=== PATIENT | male | born 1940 | race Caucasian/White ===

== ENCOUNTER → 2018-12-28 | Outpatient (CLI) | payer MEDICARE ==
[~2018-12-28] MED LIST: ASPI-1197 PO; CLONIDINE PO; FLUO20CA30 PO; LABE300T2 PO; LEVO500T89 PO; METH4TAB16 PO; NAPR220T57 PO; OLME40TA8 PO; OMEG-58 PO; ROSU5TAB PO
== END | disposition home or self-care (01) ==
LOC: OIH 10:03
PROVIDERS: ATTEND Internal Medicine
DX: M19.042 Primary osteoarthritis, left hand (principal); M47.812 Spondylosis without myelopathy or radiculopathy, cervical region; M48.02 Spinal stenosis, cervical region; M25.78 Osteophyte, vertebrae
CPT/HCPCS: 72040; 73120

== ENCOUNTER → 2023-07-08 | Outpatient (CLI) | payer MEDICARE ==
[~2023-07-08] MED LIST changes: -LABE300T2 PO; +LABE300T4 PO; +LEVO-70 PO; -LEVO500T89 PO; +OLME40TA70 PO; -OLME40TA8 PO
== END | disposition home or self-care (01) ==
LOC: RAH 13:56
PROVIDERS: ATTEND Student in an Organized Health Care Education/Training Program
DX: I82.431 Acute embolism and thrombosis of right popliteal vein (principal); I82.411 Acute embolism and thrombosis of right femoral vein; I82.441 Acute embolism and thrombosis of right tibial vein; I82.401 Acute embolism and thrombosis of unspecified deep veins of right lower extremity; R60.9 Edema, unspecified; Z79.899 Other long term (current) drug therapy
CPT/HCPCS: 93970

== ENCOUNTER 2023-07-18 12:36 | Inpatient (IN) | payer MEDICARE ==
[~2023-07-18] VITALS: Ht 172.7 cm; Wt 80.2 kg
[2023-07-18 14:17] LABS: BASOPHILS # (AUTO) 0.02 K/uL (0.00-0.20); BASOPHILS % (AUTO) 0.3 % (0.0-5.0); EOSINOPHILS # (AUTO) 0.01 K/uL (0.00-0.70); EOSINOPHILS % (AUTO) 0.1 % (0.0-8.0); HEMATOCRIT 44.5 % (42-54); IMMATURE GRANULOCYTE ABSOLUTE 0.02 K/uL (0-1); LYMPHOCYTES # (AUTO) 0.6 K/uL (1.0-4.8); LYMPHOCYTES % (AUTO) 7.7 % (21.0-51.0); MEAN CORPUSCULAR HEMOGLOBIN 30.3 pg (27.0-33.0); MEAN CORPUSCULAR VOLUME 97.6 fL (79-99); MONOCYTES # (AUTO) 0.3 K/uL (0.1-1.0); MONOCYTES % (AUTO) 3.7 % (3.0-13.0); NEUTROPHILS # (AUTO) 6.7 K/uL (1.8-7.7); NEUTROPHILS % (AUTO) 87.9 % (40.0-77.0); PLATELET COUNT (AUTO) 176 K/uL (130-400); RED BLOOD CELL COUNT(AUTO) 4.56 MIL/uL (4.50-6.20); RED CELL DISTRIBUTION WIDTH 13.8 % (11.0-15.5); WHITE BLOOD COUNT (AUTO) 7.6 K/uL (4.8-10.8)
[2023-07-18 14:25] LABS: CREATININE 1.6 mg/dL (0.5-1.5); POTASSIUM 5.3 mmol/L (3.5-5.1)
[2023-07-18 14:26] LABS: INR <= 0.93 (0.85-1.15); PROTHROMBIN TIME 10.4 SEC (9.6-11.6)
[2023-07-18 14:28] LABS: PARTIAL THROMBOPLASTIN TIME 27.6 SEC (26.3-35.5)
[2023-07-18 14:30] LABS: ALBUMIN 3.7 g/dL (3.5-5.0); BILIRUBIN,TOTAL 0.4 mg/dL (0.2-1.0); TOTAL PROTEIN, SERUM 7.2 g/dL (6.0-8.3)
[2023-07-18] MEDS: HEPARIN 25,000 UNITS/250ML D5W 250 ML IV SCH (14:57)
[2023-07-18] MEDS: HEPARIN 5,000 UNIT VIAL IV ONE (14:58)
[2023-07-18] MEDS ORDERED: KCL 20 MEQ ERTAB PO PRN (15:30)
[2023-07-18] MEDS ORDERED: POTASSIUM CHLORIDE 20MEQ/100ML 100 ML IV PRN (15:30)
[2023-07-18] MEDS ORDERED: POTASSIUM CHLORIDE 10% ELIXIR 20 MEQ/15 ML UDCUP PO PRN (15:30)
[2023-07-18 18:45] LABS: APPEARANCE,URINE CLEAR (CLEAR); BILIRUBIN,URINE NEGATIVE (NEGATIVE); COLOR,URINE COLORLESS (YELLOW); GLUCOSE, URINE (UA) NEGATIVE (NEGATIVE); KETONES,URINE 10 mg/dL (NEGATIVE); LEUKOCYTE ESTERASE ,URINE NEGATIVE Leu/uL (NEGATIVE); NITRATE,URINE NEGATIVE (NEGATIVE); OCCULT BLOOD,URINE NEGATIVE (NEGATIVE); PROTEIN,URINE NEGATIVE (NEGATIVE); UROBILINOGEN,URINE 0.2 mg/dL (0.2-1.0)
[2023-07-18 18:46] LABS: ADD UA MICROSCOPIC YES
[2023-07-18 18:47] LABS: RBC,URINE 0-1 /HPF (0-1); WBC,URINE 0-1 /HPF (0-1)
[2023-07-18] MEDS ORDERED: LISI40TA9 PO (19:40)
[2023-07-18] MEDS ORDERED: HYDR12.54 PO (19:40)
[2023-07-18] MEDS ORDERED: ACET-66 PO (19:40)
[2023-07-18] MEDS ORDERED: CHOL378P14 PO (19:40)
[2023-07-18] MEDS ORDERED: CITA40TA14 PO (19:40)
[2023-07-18] MEDS ORDERED: MULT-1367 PO (19:40)
[2023-07-18] MEDS ORDERED: IPRA3AMP24 IH (19:40)
[2023-07-18] MEDS ORDERED: FINA5TAB41 PO (19:40)
[2023-07-18] MEDS ORDERED: SIMV80TA91 PO (19:40)
[2023-07-18] MEDS ORDERED: FERR-72 PO (19:40)
[2023-07-18] MEDS ORDERED: AEC81 PO (19:40)
[2023-07-18] MEDS ORDERED: METO-408 PO (19:40)
[2023-07-18] MEDS ORDERED: LIDO700A30 TP (19:40)
[2023-07-18 21:36] LABS: INR 0.96 (0.85-1.15); PROTHROMBIN TIME 11.2 SEC (9.6-11.6)
[2023-07-18 21:59] LABS: PARTIAL THROMBOPLASTIN TIME > 139.0 SEC (26.3-35.5)
[2023-07-19 03:33] LABS: INR 0.94 (0.85-1.15)
[2023-07-19 03:51] LABS: PARTIAL THROMBOPLASTIN TIME > 139.0 SEC (26.3-35.5)
[2023-07-19 06:31] LABS: BILIRUBIN,TOTAL 0.5 mg/dL (0.2-1.0); CREATININE 1.4 mg/dL (0.5-1.5); POTASSIUM 4.9 mmol/L (3.5-5.1); TOTAL PROTEIN, SERUM 5.9 g/dL (6.0-8.3)
[2023-07-19 07:43] LABS: BASOPHILS # (AUTO) 0.04 K/uL (0.00-0.20); BASOPHILS % (AUTO) 0.8 % (0.0-5.0); EOSINOPHILS % (AUTO) 3.8 % (0.0-8.0); HEMATOCRIT 40.3 % (42-54); IMMATURE GRANULOCYTE ABSOLUTE 0.03 K/uL (0-1); LYMPHOCYTES # (AUTO) 1.5 K/uL (1.0-4.8); LYMPHOCYTES % (AUTO) 28.1 % (21.0-51.0); MEAN CORPUSCULAR HEMOGLOBIN 30.8 pg (27.0-33.0); MEAN CORPUSCULAR HGB CONC 32.5 g/dL (32.0-36.0); MEAN CORPUSCULAR VOLUME 94.8 fL (79-99); MONOCYTES # (AUTO) 0.5 K/uL (0.1-1.0); MONOCYTES % (AUTO) 9.4 % (3.0-13.0); NEUTROPHILS % (AUTO) 57.3 % (40.0-77.0); PLATELET COUNT (AUTO) 153 K/uL (130-400); RED BLOOD CELL COUNT(AUTO) 4.25 MIL/uL (4.50-6.20); RED CELL DISTRIBUTION WIDTH 13.7 % (11.0-15.5); WHITE BLOOD COUNT (AUTO) 5.2 K/uL (4.8-10.8)
[2023-07-19] MEDS: FUROSEMIDE 40MG VIAL IV SCH (08:59)
[2023-07-19 09:19] LABS: INR 0.96 (0.85-1.15); PROTHROMBIN TIME 11.2 SEC (9.6-11.6)
[2023-07-19 09:45] LABS: PARTIAL THROMBOPLASTIN TIME 110.1 SEC (26.3-35.5)
[2023-07-19 16:13] LABS: INR 0.94 (0.85-1.15); PROTHROMBIN TIME 10.9 SEC (9.6-11.6)
[2023-07-19 16:14] LABS: PARTIAL THROMBOPLASTIN TIME 64.6 SEC (26.3-35.5)
[2023-07-19 20:30] VITALS: BP 144/87; PULSE 73; RESP 20
[2023-07-19] MEDS ORDERED: SPIR25TA6 PO (21:33)
[2023-07-19] MEDS ORDERED: FURO40TA5 PO (21:33)
[2023-07-19] MEDS ORDERED: APIX5TAB PO (21:33)
[2023-07-19] MEDS ORDERED: TAMS-1 PO (21:33)
[2023-07-19] MEDS ORDERED: LINE600T14 PO (21:33)
[2023-07-19 23:31] VITALS: BP 119/63; PULSE 63; RESP 18
[2023-07-20 05:09] VITALS: BP 108/60; PULSE 58; RESP 20
[2023-07-20 08:00] VITALS: BP 124/67; PULSE 60; RESP 17
[2023-07-20] MEDS: FUROSEMIDE 40 MG TABLET PO SCH (08:39)
[2023-07-20] MEDS: TAMSULOSIN HCL 0.4 MG CAP.ER.24H PO SCH (08:39)
[2023-07-20] MEDS: SPIRONOLACTONE 25 MG TAB PO SCH (08:39)
[2023-07-20] MEDS: ZYVOX 600 MG TAB PO SCH (08:39)
[2023-07-20 12:00] VITALS: BP 111/72; PULSE 73; RESP 16
[2023-07-20 16:00] VITALS: BP 108/69; PULSE 63; RESP 18
[2023-07-20 20:37] VITALS: BP 115/64; PULSE 62; RESP 19
[2023-07-20 23:59] VITALS: BP 155/78; PULSE 73; RESP 19
[2023-07-21] VITALS: BP 106/61; PULSE 59; RESP 18
[2023-07-21 04:22] VITALS: BP 110/61; PULSE 61; RESP 17
[2023-07-21 04:42] LABS: HEMATOCRIT 42.5 % (42-54); MEAN CORPUSCULAR HEMOGLOBIN 30.5 pg (27.0-33.0); MEAN CORPUSCULAR HGB CONC 31.8 g/dL (32.0-36.0); MEAN CORPUSCULAR VOLUME 96.2 fL (79-99); RED BLOOD CELL COUNT(AUTO) 4.42 MIL/uL (4.50-6.20); RED CELL DISTRIBUTION WIDTH 13.8 % (11.0-15.5); WHITE BLOOD COUNT (AUTO) 5.6 K/uL (4.8-10.8)
[2023-07-21 04:49] LABS: CREATININE 1.8 mg/dL (0.5-1.5); POTASSIUM 4.7 mmol/L (3.5-5.1)
[2023-07-21 08:00] VITALS: BP 119/60; PULSE 70; RESP 17
[2023-07-21 09:00] VITALS: O2SAT 98
[2023-07-21] MEDS: APIXABAN 5 MG TABLET PO SCH (10:00)
[2023-07-21 11:00] VITALS: BP 109/56; PULSE 65; RESP 17
== END 2023-07-21 11:45 | disposition home or self-care (01) | DRG 300 ==
LOC: EDH 12:36 → EDHIP 15:23 → 3DH 07-19 20:06
PROVIDERS: ADMIT Internal Medicine; ATTEND Internal Medicine
DX: I82.441 Acute embolism and thrombosis of right tibial vein (principal); I13.0 Hypertensive heart and chronic kidney disease with heart failure and stage 1 through stage 4 chronic kidney disease, or unspecified chronic kidney disease; I50.32 Chronic diastolic (congestive) heart failure; I82.411 Acute embolism and thrombosis of right femoral vein; E78.5 Hyperlipidemia, unspecified; Z96.649 Presence of unspecified artificial hip joint; F19.90 Other psychoactive substance use, unspecified, uncomplicated; I82.431 Acute embolism and thrombosis of right popliteal vein; N18.9 Chronic kidney disease, unspecified; Z79.01 Long term (current) use of anticoagulants; Z86.718 Personal history of other venous thrombosis and embolism
CPT/HCPCS: 36415; 71045; 80048; 80053; 81001; 85025; 85027; 85610; 85730; 93970; G0378; J1644; J1940

== ENCOUNTER → 2023-11-29 | Outpatient (CLI) | payer MEDICARE ==
[~2023-11-29] MED LIST changes: +APIX5TAB PO; -ASPI-1197 PO; -CLONIDINE PO; -FLUO20CA30 PO; +FURO40TA5 PO; -LABE300T4 PO; -LEVO-70 PO; +LINE600T14 PO; -METH4TAB16 PO; -NAPR220T57 PO; -OLME40TA70 PO; -OMEG-58 PO; -ROSU5TAB PO; +SPIR25TA6 PO; +TAMS-1 PO
== END | disposition home or self-care (01) ==
LOC: SHCH 10:35
PROVIDERS: ATTEND Student in an Organized Health Care Education/Training Program
DX: I82.511 Chronic embolism and thrombosis of right femoral vein (principal); I87.2 Venous insufficiency (chronic) (peripheral)
CPT/HCPCS: 93970

== ENCOUNTER → 2024-02-16 | Outpatient (CLI) | payer MEDICARE ==
[2024-02-16 12:30] LABS: ALBUMIN 3.1 g/dL (3.5-5.0); BILIRUBIN,TOTAL 0.4 mg/dL (0.2-1.0); CREATININE 1.6 mg/dL (0.5-1.3); POTASSIUM 4.2 mmol/L (3.5-5.1); TOTAL PROTEIN, SERUM 6.5 g/dL (6.0-8.3)
== END | disposition home or self-care (01) ==
LOC: LAB 10:18
PROVIDERS: ATTEND Student in an Organized Health Care Education/Training Program
DX: E78.5 Hyperlipidemia, unspecified (principal); I50.9 Heart failure, unspecified
CPT/HCPCS: 36415; 80053; 80061

== ENCOUNTER → 2024-02-21 | Outpatient (CLI) | payer MEDICARE ==
[~2024-02-21] MED LIST changes: +IOHEXOL 350 MG/ML 100ML INFUS..BTL IV ONE; +metoPROLOL tartRATE 1 MG/ML 5ML VIAL IV ONE
== END | disposition home or self-care (01) ==
LOC: RAH 09:16
PROVIDERS: ATTEND Student in an Organized Health Care Education/Training Program
DX: I25.10 Atherosclerotic heart disease of native coronary artery without angina pectoris (principal); I50.9 Heart failure, unspecified; M47.815 Spondylosis without myelopathy or radiculopathy, thoracolumbar region
CPT/HCPCS: 75574; J3490; Q9967

== ENCOUNTER → 2024-03-31 | Outpatient (CLI) | payer MEDICARE ==
[~2024-03-31] MED LIST changes: -IOHEXOL 350 MG/ML 100ML INFUS..BTL IV ONE; -metoPROLOL tartRATE 1 MG/ML 5ML VIAL IV ONE
== END | disposition home or self-care (01) ==
LOC: SHCH 14:44
PROVIDERS: ATTEND Student in an Organized Health Care Education/Training Program
DX: I73.9 Peripheral vascular disease, unspecified (principal)
CPT/HCPCS: 93925